=== PATIENT | female | born 1980 | race Caucasian/White ===

== ENCOUNTER 2019-08-05 23:09 | Emergency (ER) | payer BC ==
[2019-08-05] MEDS ORDERED: predniSONE 20 MG Tab PO STA (23:58)
--- NOTE | 2019-08-06 00:06 | EDM.PDOC ---
ED HPI GENERAL MEDICAL PROBLEM - General Chief Complaint: Allergic Reaction Stated Complaint: RASH ALLERGIC REACTION THROAT PAIN AND EYE PAIN Time Seen by Provider: 08/05/19 23:27 Source of Information: Reports: Patient, Family () History Limitations: Reports: No Limitations - History of Present Illness INITIAL COMMENTS - FREE TEXT/NARRATIVE: Mrs. Braden is a very pleasant 39-year-old woman with no chronic medical problems , on no medications, who states that she developed generalized pruritic urticaria around midnight last night (nearly 24 hours ago). She took 2 tablets of Zyrtec at that time, which she states helped quite a bit, but her symptoms worsened again around 15:00 this afternoon. She took 2 tablets of Benadryl around 16:00, but her symptoms only seemed to worsen. She took additional Zyrtec around 20:00 tonight, and 50 mg of Benadryl around 22:30, just prior to coming to the ED. At no time has the patient experienced dyspnea or wheezing. She has not experienced angioedema. She has not had any nausea, vomiting, abdominal pain, constipation, or diarrhea. No prior similar symptoms. The patient is not have a PCP. Her Plant Engineering Supervisor is Dr. Prabha Ohara. Generalized Pain Score (Numeric/FACES): 4 - Related Data Allergies Allergy/AdvReac Type Severity Reaction Status Date / Time cephalexin Allergy Rash Verified 08/05/19 23:21 Home Meds: Home Meds EPINEPHrine [Adrenaclick] 1 injection IM ASDIRECTED PRN #1 kit 08/06/19 [Rx] predniSONE [Prednisone] 1 tab PO QPM #2 tablet 08/06/19 [Rx] Past Medical History - Past Surgical History HEENT Surgical History: Reports: LASIK (bilateral) Social & Family History - Tobacco Use Smoking Status *Q: Never Smoker - Caffeine Use Caffeine Use: Reports: None - Alcohol Use Alcohol Use History: Yes Alcohol Use Frequency: Socially - Recreational Drug Use Recreational Drug Use: Yes Drug Use in Last 12 Months: No Recreational Drug Type: Reports: Marijuana/Hashish (last tried in HS) - Living Situation & Occupation Living situation: Reports: , with Spouse, with Family (2 kids) Occupation: Employed ([employer] Dept) ED ROS ALLERGIC REACTION - Review of Systems Review Of Systems: Comprehensive ROS is negative, except as noted in HPI. ED EXAM GENERAL NO PERIP PULSE - Physical Exam Exam: See Below Exam Limited By: No Limitations General Appearance: Alert, WD/WN, Mild Distress (appears uncomfortable) Eye Exam: Bilateral Eye: EOMI, Normal Inspection Ears: Normal External Exam, Hearing Grossly Normal Nose: Normal Inspection Throat/Mouth: Normal Inspection, Normal Lips, Normal Teeth, Normal Gums, Normal Oropharynx, Normal Voice, No Airway Compromise Head: Atraumatic, Normocephalic Neck: Normal Inspection, Supple, Non-Tender, Full Range of Motion. No: Lymphadenopathy (L), Lymphadenopathy (R) Respiratory/Chest: No Respiratory Distress, Lungs Clear, Normal Breath Sounds, No Accessory Muscle Use. No: Decreased Breath Sounds, Crackles, Rhonchi, Wheezing, Stridor, Prolonged Expiration Cardiovascular: Normal Peripheral Pulses, No Edema, No Gallop, No JVD, No Murmur , No Rub, Tachycardia (regular) GI/Abdominal: Normal Bowel Sounds, Soft, Non-Tender, No Organomegaly, No Distention, No Abnormal Bruit, No Mass (Female) Exam: Deferred Rectal (Female) Exam: Deferred Back Exam: Normal Inspection, Full Range of Motion, NT Extremities: Normal Inspection, Normal Range of Motion, No Pedal Edema, Normal Capillary Refill Neurological: Alert, Oriented, Normal Cognition, No Motor/Sensory Deficits Psychiatric: Normal Affect Skin Exam: Warm, Dry, Intact, Normal Color, Rash (Urticaria noted on the neck and upper and lower extremities. Minimal urticaria to the trunk.) Course - Vital Signs Last Recorded V/S: Last Vital Signs Temp 36.8 C 08/05/19 23:16 Pulse 104 H 08/05/19 23:16 Resp 20 08/05/19 23:16 BP 163/88 H 08/05/19 23:16 Pulse Ox 100 08/05/19 23:16 - Orders/Labs/Meds Meds: Medications Discontinued Medications Generic Name Dose Route Start Last Admin Trade Name Victor Hugo PRN Reason Stop Dose Admin Prednisone 60 mg 08/05/19 23:58 08/06/19 00:10 Prednisone PO 08/05/19 23:59 60 mg ONETIME STA Administration - Re-Assessments/Exams Free Text/Narrative Re-Assessment/Exam: 08/05/19 23:59 With generalized urticaria, the patient appears to be having an anaphylactic reaction to an unknown substance that she ingested. For tonight's purposes, the patient will be treated with 60 mg of oral prednisone. I will discharge her home with prescriptions for prednisone 20 mg, to be taken tonight and tomorrow night, and an EpiPen kit. She will follow-up with her son's Data Base Design Analyst, Dr. Donaldson, in [place], at the next available appointment, in order to get tested to determine what she is allergic to. Departure - Departure Time of Disposition: 00:00 Disposition: Home, Self-Care 01 Condition: Good Clinical Impression: Anaphylaxis - Discharge Information *PRESCRIPTION DRUG MONITORING PROGRAM REVIEWED*: Not Applicable *COPY OF PRESCRIPTION DRUG MONITORING REPORT IN PATIENT ORACIO: Not Applicable Prescriptions: EPINEPHrine [Adrenaclick] 1 injection IM ASDIRECTED PRN #1 kit PRN Reason: Allergies predniSONE [Prednisone] 1 tab PO QPM #2 tablet Instructions: Anaphylactic Reaction, Adult, [id number] Referrals: Sreedhar Donaldson MD [Ordering Only Provider] - Prabha Ohara MD [Physician] - Forms: ED Department Discharge Additional Instructions: You were seen in the emergency room after developing a generalized itchy hives last night around midnight. It is not known what you are allergic to. You have been started on the steroid prednisone, and a prescription for prednisone, along with a prescription for an EpiPen kit, have been sent to the [facility], [facility] [facility]. Take one tablet of prednisone Tuesday evening, 08/06/2019, then the second tablet of prednisone Tuesday evening, 08/07/2019, as prescribed. If you are experiencing hives, try to avoid heat as much as possible. For excessive itching, apply an ice pack to the affected area. If you're experiencing hives, you may continue to take either nonsedating Zyrtec or sedating Benadryl, as directed on the labels. If you develop an allergic reaction that involves itchy hives, or shortness of breath, with or without wheezing, inject epinephrine into your anterolateral thigh, as directed. You may repeat after 15 minutes, if needed, however, if you inject epinephrine, it is imperative that you go to the nearest ER immediately. Follow-up with your Data Base Design Analyst, Dr. Sreedhar Donaldson, at the next available appointment, in order to determine what it is that you are allergic to. If any other problems, please do not hesitate to return to the ER.
== END 2019-08-06 00:15 | disposition home or self-care (01) ==
LOC: JD.ED 23:09
DX: T78.2XXA Anaphylactic shock, unspecified, initial encounter (principal); Z88.1 Allergy status to other antibiotic agents
CPT/HCPCS: 99283; A9270